=== PATIENT | female | born 1935 | race Caucasian/White ===

== ENCOUNTER 2021-03-10 14:04 | Inpatient (IN) ==
[2021-03-10] MEDS ORDERED: Ondansetron 4 MG/2 ML VIAL IVP ONE (15:38)
[2021-03-10] MEDS ORDERED: 0.9 % Sodium Chloride 1,000 ML IVC ONE ×2 (15:38→16:26)
[2021-03-10 16:18] LABS: Basophils % 0.3 %; Hematocrit 40.4 % (35.3-44.9); Hemoglobin 13.9 g/dL (11.5-15.4); Immature Granulocytes % 0.8 % (0-4); Immature Platelets 3.6 % (1.1-6.1); Lymphocytes # 0.3 K/mcL (0.6-4.6); Lymphocytes % 8.3 %; Mean Corpuscular HGB Conc 34.4 g/dL (31.6-35.5); Mean Corpuscular Hemoglobin 32.3 pg (28.0-33.3); Mean Platelet Volume 9.9 fL (9.4-12.4); Monocytes # 0.4 K/mcL (0.0-1.3); Monocytes % 9.3 %; Neutrophils # 3.2 K/mcL (1.6-8.9); Platelet Count 193 K/mcL (140-400); Segmented Neutrophils % 81.3 %; White Blood Count 3.9 K/mcL (4.3-11.1)
[2021-03-10 16:35] LABS: Alanine Aminotransferase 42 Units/L (7-52); Albumin 3.5 g/dL (3.5-5.7); Albumin/Globulin Ratio 1.3 (1.1-2.2); Alkaline Phosphatase 52 Units/L (34-104); Aspartate Amino Transferase 46 Units/L (13-39); BUN/Creatinine Ratio 30 (6-26); Bilirubin,Total 0.8 mg/dL (0.3-1.0); Blood Urea Nitrogen 31 mg/dL (8-23); Calcium 8.6 mg/dL (8.6-10.3); Carbon Dioxide 25 mEq/L (23-29); Chloride 101 mEq/L (98-107); Creatine Kinase 26 Units/L (30-223); Globulin 2.6 g/dL (2.4-3.5); Glucose 302 mg/dL (70-105); Magnesium 2.1 mg/dL (1.6-2.6); Osmolality,Calculated 302 (280-300); Phosphorous 2.2 mg/dL (2.7-4.5); Potassium 3.9 mEq/L (3.5-5.1); Sodium 137 mEq/L (136-145); Total Protein 6.1 g/dL (6.4-8.9); Troponin I < 0.03 ng/mL (< 0.04); eGFR For African Americans > 60 (> 60); eGFR For Non-African Americans 50 (> 60)
[2021-03-10] MEDS ORDERED: Acetaminophen 325 MG TABLET PO PRN (16:57)
[2021-03-10] MEDS ORDERED: Ondansetron 4 MG/2 ML VIAL IVP PRN (16:57)
[2021-03-10] MEDS ORDERED: Casirivimab/Imdevima 600/600MG 1,200 MG in 0.9 % Sodium Chloride 50 ML IVPB ONE (16:57)
[2021-03-10] MEDS ORDERED: methylPREDNISolone 125 MG/2 ML VIAL IVP PRN (16:57)
[2021-03-10] MEDS ORDERED: EPINEPHrine 1 MG/ML VIAL IM PRN (16:57)
[2021-03-10 20:56] LABS: Bilirubin,Urine Small (Negative); Blood,Urine Moderate (Negative); Clarity,Urine Cloudy (Clear); Color,Urine Yellow (Yellow); Glucose,Urine (UA) Normal (Normal); Ketones,Urine 40 mg/dL (Negative); Leukocyte Esterase,Urine Small (Negative); Nitrite,Urine Negative (Negative); Protein,Urine 30 mg/dL (Neg-Trace); Specific Gravity,Urine 1.015 (1.010-1.025); Urobilinogen,Urine Normal (Normal)
[2021-03-10] MEDS ORDERED: Sulfamethoxazole/Trimeth DS 1 EACH TABLET PO ONE (21:01)
[2021-03-10 21:03] LABS: Bacteria,Urine Many per hpf (None-Few); Squamous Epithelial Cell,Urine Many per hpf (None-Few)
[2021-03-10 21:04] LABS: RBC,Urine 15-30 per hpf (0-3); Transitional Epi Cells,Urine Few per hpf (None-Few); WBC,Urine 15-30 per hpf (0-3)
[2021-03-10] MEDS ORDERED: Nitrofurantoin (BID) 100 MG CAPSULE PO ONE (21:30)
[2021-03-10] MEDS ORDERED: Naloxone 0.4 MG/ML INJ IVP PRN (22:30)
[2021-03-10] MEDS ORDERED: Melatonin 3 MG TABLET PO PRN (22:30)
[2021-03-10] MEDS ORDERED: Perflutren Lipid Microsphere 1.3 ML in 0.9 % Sodium Chloride 8.7 ML IVP PRN (22:34)
[2021-03-10] MEDS ORDERED: D5% in Water 1,000 ML IVC PRN (22:41)
[2021-03-10] MEDS ORDERED: Dextrose Gel 15 GM/37.5 ML TUBE PO PRN ×2 (22:41)
[2021-03-10] MEDS ORDERED: *HR* Dextrose 50 % in Water (Syg) 50 ML SYRINGE IVP PRN (22:41)
[2021-03-11 00:28] LABS: Hematocrit 33.3 % (35.3-44.9); Mean Corpuscular HGB Conc 34.8 g/dL (31.6-35.5); Mean Corpuscular Hemoglobin 32.8 pg (28.0-33.3); Mean Corpuscular Volume 94.1 fL (83.0-100.0); Mean Platelet Volume 9.6 fL (9.4-12.4); Platelet Count 157 K/mcL (140-400); Red Blood Count 3.54 M/mcL (3.82-4.97); Red Cell Distribution Width 11.9 % (11.5-14.5); White Blood Count 2.5 K/mcL (4.3-11.1)
[2021-03-11 00:30] LABS: Hemoglobin 11.6 g/dL (11.5-15.4)
[2021-03-11 00:48] LABS: Alanine Aminotransferase 36 Units/L (7-52); Albumin/Globulin Ratio 1.5 (1.1-2.2); Alkaline Phosphatase 44 Units/L (34-104); Aspartate Amino Transferase 44 Units/L (13-39); BUN/Creatinine Ratio 25 (6-26); Bilirubin,Direct 0.1 mg/dL (0.0-0.2); Bilirubin,Indirect 0.5 mg/dL (0.0-1.0); Bilirubin,Total 0.6 mg/dL (0.3-1.0); Blood Urea Nitrogen 21 mg/dL (8-23); C-Reactive Protein < 5 mg/L (Less than 10); Calcium 7.5 mg/dL (8.6-10.3); Carbon Dioxide 23 mEq/L (23-29); Chloride 109 mEq/L (98-107); Glucose 185 mg/dL (70-105); Magnesium 1.8 mg/dL (1.6-2.6); Osmolality,Calculated 296 (280-300); Phosphorous 1.5 mg/dL (2.7-4.5); Potassium 3.2 mEq/L (3.5-5.1); Sodium 139 mEq/L (136-145); eGFR For African Americans > 60 (> 60); eGFR For Non-African Americans > 60 (> 60)
[2021-03-11] MEDS: Ipratropium 1 PUFF INHALER IH SCH ×4 (03:41→21:05)
[2021-03-11] MEDS ORDERED: *HR* Enoxaparin 40 MG/0.4 ML SYRINGE SQ SCH (06:00)
[2021-03-11] MEDS ORDERED: Isovue-370 500 ML BOTTLE IVP ONE (07:39)
[2021-03-11] MEDS: Magnesium Oxide 400 MG TABLET PO SCH ×2 (09:17→20:28)
[2021-03-11] MEDS: Lactobacillus 1 EACH CAP.SPRINK PO SCH (09:17)
[2021-03-11] MEDS: Cyanocobalamin (B-12) 1,000 MCG TABLET PO SCH (09:18)
[2021-03-11] MEDS: Aspirin Enteric Coated 81 MG Tablet PO SCH (09:18)
[2021-03-11] MEDS ORDERED: *HR* Enoxaparin 30 MG/0.3 ML SYRINGE SQ ONE (09:26)
[2021-03-11] MEDS: Insulin LISPRO 300 UNITS/3 ML VIAL SUBQ SCH ×4 (09:33→19:46)
[2021-03-11] MEDS: *HR* Enoxaparin 60 MG/0.6 ML SYRINGE SQ SCH (17:23)
[2021-03-12 04:21] LABS: Basophils % 0.3 %; Hematocrit 33.2 % (35.3-44.9); Hemoglobin 11.1 g/dL (11.5-15.4); Immature Granulocytes % 1.3 % (0-4); Lymphocytes # 0.5 K/mcL (0.6-4.6); Lymphocytes % 13.3 %; Mean Corpuscular HGB Conc 33.4 g/dL (31.6-35.5); Mean Corpuscular Hemoglobin 31.6 pg (28.0-33.3); Mean Corpuscular Volume 94.6 fL (83.0-100.0); Monocytes # 0.5 K/mcL (0.0-1.3); Monocytes % 12.3 %; Neutrophils # 2.8 K/mcL (1.6-8.9); Platelet Count 162 K/mcL (140-400); Red Blood Count 3.51 M/mcL (3.82-4.97); Red Cell Distribution Width 12.1 % (11.5-14.5); Segmented Neutrophils % 72.8 %; White Blood Count 3.8 K/mcL (4.3-11.1)
[2021-03-12] MEDS: Ipratropium 1 PUFF INHALER IH SCH ×4 (04:27→19:50)
[2021-03-12 04:40] LABS: Alanine Aminotransferase 33 Units/L (7-52); Albumin/Globulin Ratio 1.4 (1.1-2.2); Alkaline Phosphatase 42 Units/L (34-104); Aspartate Amino Transferase 31 Units/L (13-39); BUN/Creatinine Ratio 13 (6-26); Bilirubin,Total 0.5 mg/dL (0.3-1.0); Blood Urea Nitrogen 13 mg/dL (8-23); Calcium 7.8 mg/dL (8.6-10.3); Carbon Dioxide 24 mEq/L (23-29); Chloride 108 mEq/L (98-107); Globulin 2.1 g/dL (2.4-3.5); Glucose 183 mg/dL (70-105); Osmolality,Calculated 295 (280-300); Potassium 3.9 mEq/L (3.5-5.1); Sodium 140 mEq/L (136-145); Total Protein 5.1 g/dL (6.4-8.9); eGFR For African Americans > 60 (> 60); eGFR For Non-African Americans 53 (> 60)
[2021-03-12] MEDS: *HR* Enoxaparin 60 MG/0.6 ML SYRINGE SQ SCH (06:09)
[2021-03-12] MEDS ORDERED: Perflutren Lipid Microsphere 1.3 ML in 0.9 % Sodium Chloride 8.7 ML IVP PRN (07:29)
[2021-03-12] MEDS: Insulin LISPRO 300 UNITS/3 ML VIAL SUBQ SCH ×4 (08:52→20:10)
[2021-03-12] MEDS: Aspirin Enteric Coated 81 MG Tablet PO SCH (08:53)
[2021-03-12] MEDS: Lactobacillus 1 EACH CAP.SPRINK PO SCH (08:53)
[2021-03-12] MEDS: Cyanocobalamin (B-12) 1,000 MCG TABLET PO SCH (08:53)
[2021-03-12] MEDS: Apixaban 5 MG TABLET PO SCH (20:09)
[2021-03-13] MEDS: Ipratropium 1 PUFF INHALER IH SCH ×4 (04:04→19:51)
[2021-03-13 05:15] LABS: Basophils % 0.2 %; Hematocrit 33.4 % (35.3-44.9); Hemoglobin 11.6 g/dL (11.5-15.4); Immature Granulocytes % 1.4 % (0-4); Lymphocytes # 0.5 K/mcL (0.6-4.6); Lymphocytes % 11.5 %; Mean Corpuscular HGB Conc 34.7 g/dL (31.6-35.5); Mean Corpuscular Hemoglobin 32.5 pg (28.0-33.3); Mean Corpuscular Volume 93.6 fL (83.0-100.0); Mean Platelet Volume 9.7 fL (9.4-12.4); Monocytes # 0.4 K/mcL (0.0-1.3); Monocytes % 9.4 %; Neutrophils # 3.4 K/mcL (1.6-8.9); Platelet Count 166 K/mcL (140-400); Red Blood Count 3.57 M/mcL (3.82-4.97); Red Cell Distribution Width 11.9 % (11.5-14.5); Segmented Neutrophils % 77.5 %; White Blood Count 4.4 K/mcL (4.3-11.1)
[2021-03-13 05:41] LABS: Alanine Aminotransferase 42 Units/L (7-52); Albumin 3.1 g/dL (3.5-5.7); Albumin/Globulin Ratio 1.5 (1.1-2.2); Alkaline Phosphatase 43 Units/L (34-104); Aspartate Amino Transferase 54 Units/L (13-39); BUN/Creatinine Ratio 14 (6-26); Bilirubin,Total 0.6 mg/dL (0.3-1.0); Blood Urea Nitrogen 14 mg/dL (8-23); Carbon Dioxide 23 mEq/L (23-29); Chloride 109 mEq/L (98-107); Globulin 2.1 g/dL (2.4-3.5); Glucose 166 mg/dL (70-105); Osmolality,Calculated 294 (280-300); Sodium 140 mEq/L (136-145); Total Protein 5.2 g/dL (6.4-8.9); eGFR For African Americans > 60 (> 60); eGFR For Non-African Americans 53 (> 60)
[2021-03-13] MEDS: Aspirin Enteric Coated 81 MG Tablet PO SCH (09:25)
[2021-03-13] MEDS: Apixaban 5 MG TABLET PO SCH ×2 (09:26→20:37)
[2021-03-13] MEDS: Cyanocobalamin (B-12) 1,000 MCG TABLET PO SCH (09:26)
[2021-03-13] MEDS: Lactobacillus 1 EACH CAP.SPRINK PO SCH (09:26)
[2021-03-13] MEDS: Insulin LISPRO 300 UNITS/3 ML VIAL SUBQ SCH ×4 (09:28→20:38)
[2021-03-14 01:35] LABS: Basophils % 0.2 %; Hemoglobin 11.5 g/dL (11.5-15.4); Immature Granulocytes % 1.7 % (0-4); Lymphocytes # 0.5 K/mcL (0.6-4.6); Lymphocytes % 9.3 %; Mean Corpuscular HGB Conc 32.9 g/dL (31.6-35.5); Mean Corpuscular Hemoglobin 31.1 pg (28.0-33.3); Mean Corpuscular Volume 94.6 fL (83.0-100.0); Mean Platelet Volume 10.2 fL (9.4-12.4); Monocytes # 0.5 K/mcL (0.0-1.3); Monocytes % 9.8 %; Neutrophils # 4.1 K/mcL (1.6-8.9); Platelet Count 185 K/mcL (140-400); White Blood Count 5.2 K/mcL (4.3-11.1)
[2021-03-14 01:51] LABS: Alanine Aminotransferase 44 Units/L (7-52); Albumin 3.1 g/dL (3.5-5.7); Albumin/Globulin Ratio 1.5 (1.1-2.2); Alkaline Phosphatase 46 Units/L (34-104); Aspartate Amino Transferase 38 Units/L (13-39); BUN/Creatinine Ratio 17 (6-26); Bilirubin,Total 0.5 mg/dL (0.3-1.0); Blood Urea Nitrogen 16 mg/dL (8-23); Calcium 8.3 mg/dL (8.6-10.3); Carbon Dioxide 21 mEq/L (23-29); Chloride 108 mEq/L (98-107); Globulin 2.1 g/dL (2.4-3.5); Glucose 207 mg/dL (70-105); Osmolality,Calculated 291 (280-300); Sodium 137 mEq/L (136-145); Total Protein 5.2 g/dL (6.4-8.9); eGFR For African Americans > 60 (> 60); eGFR For Non-African Americans 56 (> 60)
[2021-03-14] MEDS: Ipratropium 1 PUFF INHALER IH SCH ×4 (04:42→20:09)
[2021-03-14] MEDS: Lactobacillus 1 EACH CAP.SPRINK PO SCH (08:37)
[2021-03-14] MEDS: Aspirin Enteric Coated 81 MG Tablet PO SCH (08:37)
[2021-03-14] MEDS: Cyanocobalamin (B-12) 1,000 MCG TABLET PO SCH (08:38)
[2021-03-14] MEDS: Apixaban 5 MG TABLET PO SCH ×2 (08:38→20:26)
[2021-03-14] MEDS: Insulin LISPRO 300 UNITS/3 ML VIAL SUBQ SCH ×4 (08:39→20:26)
[2021-03-15] MEDS: Ipratropium 1 PUFF INHALER IH SCH ×4 (04:03→19:53)
[2021-03-15] MEDS: Lactobacillus 1 EACH CAP.SPRINK PO SCH (08:00)
[2021-03-15] MEDS: Apixaban 5 MG TABLET PO SCH ×2 (08:00→20:07)
[2021-03-15] MEDS: Aspirin Enteric Coated 81 MG Tablet PO SCH (08:00)
[2021-03-15] MEDS: Cyanocobalamin (B-12) 1,000 MCG TABLET PO SCH (08:00)
[2021-03-15] MEDS: Insulin LISPRO 300 UNITS/3 ML VIAL SUBQ SCH ×4 (08:20→20:06)
[2021-03-15] MEDS: dexAMETHasone 4 MG TABLET PO SCH (08:21)
[2021-03-15] MEDS: *HR* Metformin 500 MG TABLET PO SCH (17:00)
[2021-03-16] MEDS: Ipratropium 1 PUFF INHALER IH SCH ×4 (03:41→19:42)
[2021-03-16] MEDS: Insulin LISPRO 300 UNITS/3 ML VIAL SUBQ SCH ×3 (09:24→16:37)
[2021-03-16] MEDS: Apixaban 5 MG TABLET PO SCH (09:27)
[2021-03-16] MEDS: dexAMETHasone 4 MG TABLET PO SCH (09:27)
[2021-03-16] MEDS: Lactobacillus 1 EACH CAP.SPRINK PO SCH (09:28)
[2021-03-16] MEDS: Aspirin Enteric Coated 81 MG Tablet PO SCH (09:28)
[2021-03-16] MEDS: Cyanocobalamin (B-12) 1,000 MCG TABLET PO SCH (09:28)
[2021-03-16 14:35] VITALS: PULSE 74; TEMP 98.3
[2021-03-16] MEDS: *HR* Metformin 500 MG TABLET PO SCH (16:37)
[2021-03-16 18:39] VITALS: BP 157/71; O2SAT 94
[2021-03-18] MEDS ORDERED: Apixaban 5 MG TABLET PO SCH (21:00)
== END 2021-03-16 20:50 | disposition other institution (70) | DRG 177 ==
LOC: EMEROOARM 14:04 → 2NENU 14:04 → SUATTDRO 22:35 → 2NENU 23:17 → SUATTDRO 03-11 12:17 → 3BNU 03-13 06:10
PROVIDERS: ADMIT Internal Medicine; ATTEND Family Medicine